=== PATIENT | female | born 1950 | race Caucasian/White ===

== ENCOUNTER 2019-05-20 17:54 | Emergency (ER) | payer OTHER, MEDICARE ==
[2019-05-20] MEDS ORDERED: Alum Hydrox/Mag Hydrox/Simeth 30 ML, Lidocaine 2% 15 ML PO ONE ×2 (18:26)
[2019-05-20] MEDS ORDERED: Lactated Ringers 1,000 ML IV ONE (19:36)
[2019-05-20] MEDS ORDERED: Ondansetron 4 MG/2 ML SDV IVPUSH ONE (19:36)
[2019-05-20] MEDS ORDERED: HYDROmorphone 0.5 MG/0.5 ML Syringe IVPUSH ONE (19:36)
--- NOTE | 2019-05-20 19:39 | EDM.PDOC ---
ED HPI GENERAL MEDICAL PROBLEM - General Chief Complaint: Gastrointestinal Problem Stated Complaint: VOMITING AND UNABLE TO KEEP ANYTHING DOWN Time Seen by Provider: 05/20/19 19:19 Source of Information: Reports: Patient, Family () History Limitations: Reports: No Limitations - History of Present Illness INITIAL COMMENTS - FREE TEXT/NARRATIVE: Mrs. Orta is a very pleasant 68-year-old woman visiting this area with her , for a wedding. They are from [place]. The patient states that she developed nausea and vomiting, and sharp epigastric abdominal pain, felt through to her back, and upper chest, last night. She developed non-bloody watery diarrhea around 07:00 this morning. The patient denies feeling lightheaded when upright. She took 2 tablets of loperamide around 14:00, but no other treatments. The patient's is not similarly ill. The patient states that she had similar symptoms in November of this year. She states that she has a history of a hiatal hernia, and believes that her symptoms are due to that. The patient's PCP is in [place]. Treatments [employer]: Reports: Other Medication(s) Upper Abdomen Pain Score (Numeric/FACES): 4 - Related Data Allergies Allergy/AdvReac Type Severity Reaction Status Date / Time Sulfa (Sulfonamide Allergy Cannot Verified 05/20/19 18:22 Antibiotics) Remember Gyqwabz-Zom-Sxs Reductase AdvReac Muscle Verified 05/20/19 18:22 Inhibitor Aches trazodone AdvReac Lethargy Verified 05/20/19 18:22 Home Meds: Home Meds . 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 Restless leg syndrome.) Psychiatric History: Reports: Anxiety, Depression, Other (See Below) (Insomnia) - Infectious Disease History Infectious Disease History: Reports: Measles, Scarlet Fever - Past Surgical History HEENT Surgical History: Reports: Cataract Surgery, Naso-Sinus Surgery ( Rhinoplasty), Oral Surgery (wisdom teeth extraction) GI Surgical History: Reports: Cholecystectomy (1997), Colonoscopy (x 2), EGD (x 1) Female Surgical History: Reports: Section (x 1, 1985) Musculoskeletal Surgical History: Reports: Other (See Below) (Right elbow pinning) Social & Family History - Tobacco Use Smoking Status *Q: Former Smoker Years of Tobacco use: 44 Packs/Tins Daily: 1 Month/Year Tobacco Last Used: Quit 2011 - Caffeine Use Caffeine Use: Reports: Coffee, Soda - Alcohol Use Alcohol Use History: No - Recreational Drug Use Recreational Drug Use: No - Living Situation & Occupation Living situation: Reports: , with Spouse Occupation: Retired ED ROS GENERAL - Review of Systems Review Of Systems: ROS reveals no pertinent complaints other than HPI. ED EXAM, GI/ABD - Physical Exam Exam: See Below Exam Limited By: No Limitations General Appearance: Alert, WD/WN, No Apparent Distress Eyes: Bilateral: Normal Appearance, EOMI Ears: Normal External Exam, Hearing Grossly Normal Nose: Normal Inspection Throat/Mouth: Normal Inspection, Normal Lips, Normal Voice, No Airway Compromise Head: Atraumatic, Normocephalic Neck: Normal Inspection, Full Range of Motion Respiratory/Chest: No Respiratory Distress, Lungs Clear, Normal Breath Sounds, No Accessory Muscle Use Cardiovascular: Normal Peripheral Pulses, Regular Rate, Rhythm, No Edema, No Gallop, No JVD, No Murmur, No Rub GI/Abdominal Exam: Normal Bowel Sounds, Soft, No Organomegaly, No Distention, No Abnormal Bruit, No Mass, Tender (Epigastrium only. Nontender elsewhere.) (Female) Exam: Deferred Rectal (Female) Exam: Deferred Back Exam: Normal Inspection, Full Range of Motion. No: CVA Tenderness (L), CVA Tenderness (R) Extremities: Normal Inspection, Normal Range of Motion, No Pedal Edema, Normal Capillary Refill Neurological: Alert, Oriented, Normal Cognition, No Motor/Sensory Deficits Psychiatric: Normal Affect Skin Exam: Warm, Dry, Intact, Normal Color, No Rash Course - Vital Signs Last Recorded V/S: Last Vital Signs Temp 36.6 C 05/20/19 18:15 Pulse 100 05/20/19 18:15 Resp 20 05/20/19 18:15 BP 137/58 L 05/20/19 18:15 Pulse Ox 93 L 05/20/19 18:15 Orthostatic Blood Pressure [ 101/55 Standing] Orthostatic Blood Pressure [ 111/66 Supine] - Orders/Labs/Meds Orders: Active Orders 24 hr Category Date Time Status Orthostatic Vital Signs [RC] STAT Care 05/20/19 19:35 Active Chest 2V [CR] Stat Exams 05/20/19 19:34 Taken Labs: Laboratory Tests 05/20/19 05/20/19 Range/Units 19:50 19:50 WBC 12.11 H (3.98-10.04) K/mm3 RBC 4.63 (3.98-5.22) M/mm3 Hgb 14.6 (11.2-15.7) gm/dl Hct 43.0 (34.1-44.9) % MCV 92.9 (79.4-94.8) fl MCH 31.5 (25.6-32.2) pg MCHC 34.0 (32.2-35.5) g/dl RDW Std Deviation 43.4 (36.4-46.3) fL Plt Count 373 H (182-369) K/mm3 MPV 9.3 L (9.4-12.3) fl Neutrophils % (Manual) 80 H (40-60) % Band Neutrophils % 0 (0-10) % Lymphocytes % (Manual) 12 L (20-40) % Atypical Lymphs % 0 % Monocytes % (Manual) 6 (2-10) % Eosinophils % (Manual) 2 (0.7-5.8) % Basophils % (Manual) 0 L (0.1-1.2) Platelet Estimate Adequate RBC Morph Comment Normal Sodium 140 (136-145) mEq/L Potassium 4.2 (3.5-5.1) mEq/L Chloride 103 (98-107) mEq/L Carbon Dioxide 25 (21-32) mEq/L Anion Gap 16.2 H (5-15) BUN 16 (7-18) mg/dL Creatinine 1.0 (0.55-1.02) mg/dL Est Cr Clr Drug Dosing 49.12 mL/min Estimated GFR (MDRD) 55 (>60) mL/min BUN/Creatinine Ratio 16.0 (14-18) Glucose 118 H (80-115) mg/dL Calcium 9.1 (8.5-10.1) mg/dL Magnesium 2.0 (1.8-2.4) mg/dl Total Bilirubin 0.7 (0.2-1.0) mg/dL AST 5 L (15-37) U/L ALT 24 (14-59) U/L Alkaline Phosphatase 105 (46-116) U/L Total Protein 7.6 (6.4-8.2) g/dl Albumin 4.1 (3.4-5.0) g/dl Globulin 3.5 gm/dL Albumin/Globulin Ratio 1.2 (1-2) Lipase 129 (73-393) U/L Meds: Medications Discontinued Medications Generic Name Dose Route Start Last Admin Trade Name Daniel PRN Reason Stop Dose Admin Al Hydroxide/Mg Hydroxide 30 0 ml 05/20/19 18:26 05/20/19 18:29 ml/ Lidocaine HCl 15 ml PO 05/20/19 18:27 45 ml ONETIME ONE Administration Hydromorphone HCl 0.5 mg 05/20/19 19:36 05/20/19 19:53 Dilaudid IVPUSH 05/20/19 19:37 0.5 mg ONETIME ONE Administration Lactated Ringer's 1,000 mls @ 999 mls/hr 05/20/19 19:36 05/20/19 19:53 Ringers, Lactated IV 05/20/19 20:36 999 mls/hr .BOLUS ONE Administration Ondansetron HCl 4 mg 05/20/19 19:36 05/20/19 19:53 Zofran IVPUSH 05/20/19 19:37 4 mg ONETIME ONE Administration - Re-Assessments/Exams Free Text/Narrative Re-Assessment/Exam: 05/20/19 19:37 The patient reports that she had some improvement in her upper abdominal pain following a GI cocktail, indicating at least some component of acid reflux associated with her nausea and vomiting. With nausea, vomiting, and watery diarrhea, the patient is suffering from gastroenteritis, likely viral, since she does not have any blood in her diarrhea , and she does not have a fever, however, I am concerned that she could be suffering from pancreatitis, therefore I have ordered a workup that includes a lipase level. Because the patient's pain radiates up into her chest, I have ordered a chest x-ray. In the meantime, the patient will receive some IV Dilaudid, IV Zofran, and IV fluid. 05/20/19 20:41 2-view chest radiograph reviewed. The cardiac silhouette is within normal limits. No pulmonary vascular congestion. No pleural effusions. No focal infiltrate. No pneumothorax. There may be slight hyperinflation, but no significant diaphragmatic flattening. Formal read per the Radiologist pending. 05/20/19 22:04 Test results discussed with the patient and her daughter - the patient's is no longer present. The patient states that she is feeling much better. Her CBC is remarkable for a WBC count mildly elevated at 12.11, but with 0% bandemia, and her platelets are mildly elevated at 373,000, with the remainder of the CBC been unremarkable. Her CMP is remarkable for blood glucose mildly elevated at 118, with the remainder of the CMP being unremarkable. Her magnesium level is within normal limits at 2.0. Her lipase levels within normal limits at 129. I will discharge the patient home with a prescription for Zofran via [email or web address]. She has loperamide at home and I would like her to lease picker some Gatorade/ Powerade, to stay well hydrated, and I will make some dietary suggestions. The patient states that she will be staying in a hotel tonight, but heading home tomorrow. Departure - Departure Time of Disposition: 22:07 Disposition: Home, Self-Care 01 Condition: Good Clinical Impression: Viral gastroenteritis, GERD (gastroesophageal reflux disease) - Discharge Information *PRESCRIPTION DRUG MONITORING PROGRAM REVIEWED*: Not Applicable *COPY OF PRESCRIPTION DRUG MONITORING REPORT IN PATIENT WILBER: Not Applicable Instructions: Viral Gastroenteritis, Adult Referrals: PCP,Not In Area [Primary Care Provider] - Forms: ED Department Discharge Additional Instructions: You were seen in the emergency room after developing nausea, vomiting, and upper abdominal pain last night, then watery diarrhea this morning. Workup in the ER included blood work and a chest x-ray, all of which were unremarkable. You do not have pancreatitis. Based on your history, physical exam, and ER tests, you are most likely suffering from viral gastroenteritis. Unfortunately, there are no medicines to get rid of viral gastroenteritis - it will have to run its course. You have been prescribed the anti-nausea medicine Zofran. Dissolve one tablet of Zofran on your tongue up to every 8 hours, as needed for nausea/vomiting. Take nwlx-ooi-vywhbil loperamide (Imodium), one tablet after each loose bowel movement, to a maximum of 8 tablets within a 24-hour period. Stay adequately hydrated. Gatorade or Powerade are best. If you are hungry, we recommend a bland diet, such as rice, oatmeal, applesauce , or toast. Chicken noodle soup with saltine crackers is an excellent choice. If any other problems, please do not hesitate to return to the ER. - My Orders Last 24 Hours: My Active Orders 05/20/19 19:34 Chest 2V [CR] Stat 05/20/19 19:35 Orthostatic Vital Signs [RC] STAT - Assessment/Plan Last 24 Hours: My Active Orders 05/20/19 19:34 Chest 2V [CR] Stat 05/20/19 19:35 Orthostatic Vital Signs [RC] STAT
--- NOTE | 2019-05-22 07:10 | CR ---
Chest: Two views of the chest were obtained. Comparison: No previous chest x-ray. Moderately large hiatal hernia is seen. Heart size is normal. Upper mediastinum is normal. Lungs are clear but hyperinflated. Surgical clips are seen from prior cholecystectomy. Impression: 1. Hiatal hernia. Nothing acute is appreciated. Diagnostic code #2
== END 2019-05-20 22:35 | disposition home or self-care (01) ==
LOC: JD.ED 17:54
DX: A08.4 Viral intestinal infection, unspecified (principal); K21.9 Gastro-esophageal reflux disease without esophagitis; Z88.2 Allergy status to sulfonamides; Z87.891 Personal history of nicotine dependence; Z90.49 Acquired absence of other specified parts of digestive tract; Z88.8 Allergy status to other drugs, medicaments and biological substances
CPT/HCPCS: 36415; 71046; 80053; 83690; 83735; 85007; 85027; 96361; 96374; 96375; 99284; A9270; J1170; J2405; J7120